=== PATIENT | male | born 1945 | race Caucasian/White ===

== ENCOUNTER 2022-04-21 09:08 | Emergency (ER) | payer OTHER ==
[2022-04-21 09:32] VITALS: BP 140/96; PULSE 89; RESP 20; TEMP 98.2; BMI 22.9
[2022-04-21 11:46] LABS: HEMATOCRIT 37.6 % (35.4-49); HEMOGLOBIN 13.2 G/dL (11.7-16.9); MCH 30.8 pg (25.7-33.7); MCHC 35.1 g/dl (32.0-35.9); MEAN CELL VOLUME 87.8 fl (80-96); MEAN PLT VOLUME 7.8 fl (7.5-11.1); PLATELET COUNT 247.2 10^3/uL (134-434); RBC 4.28 10^6/uL (4.00-5.60); RDW 13.9 % (11.9-15.9); WHITE BLOOD COUNT 9.6 10^3/uL (4.0-10.8)
[2022-04-21 11:51] LABS: ALBUMIN 3.3 g/dl (3.4-5.0); BILIRUBIN,TOTAL 0.7 mg/dl (0.2-1); CALCIUM 9.2 mg/dl (8.5-10); CREATININE 0.9 mg/dl (0.55-1.3); TOT PROT 6.5 g/dl (6.4-8.2)
[2022-04-21 12:00] LABS: PLATELET ESTIMATE ADEQUATE
== END 2022-04-21 12:19 | disposition home or self-care (01) ==
LOC: FER 09:08
DX: L03.116 Cellulitis of left lower limb (principal)
CPT/HCPCS: 36415; 73562-TC-LT-FY; 80053; 85027; 99284-25

== ENCOUNTER 2023-08-30 18:04 | Emergency (ER) | payer OTHER ==
[2023-08-30 18:11] VITALS: BP 158/88; PULSE 100; RESP 16; TEMP 98.9; BMI 22.7
== END 2023-08-30 18:19 | disposition home or self-care (01) ==
LOC: FER 18:04
PROC: 09PHXKZ Removal of Nonautologous Tissue Substitute from Right Ear, External Approach (ICD-10-PCS; principal; 2023-08-30)
DX: T16.1XXA Foreign body in right ear, initial encounter (principal)
CPT/HCPCS: 99282-25

== ENCOUNTER 2024-01-13 17:05 | Emergency (ER) | payer OTHER ==
[2024-01-13 17:22] VITALS: BP 100/70; PULSE 88; RESP 16; TEMP 98.5; BMI 23.6
== END 2024-01-13 18:40 | disposition home or self-care (01) ==
LOC: FER 17:05
PROC: 0HPPXYZ Removal of Other Device from Skin, External Approach (ICD-10-PCS; principal; 2024-01-13)
DX: S90.851A Superficial foreign body, right foot, initial encounter (principal); W45.8XXA Other foreign body or object entering through skin, initial encounter
CPT/HCPCS: 73630-TC-RT-FY; 99283-25